=== PATIENT | female | born 1960 | race Caucasian/White ===

== ENCOUNTER 2021-04-08 07:44 | Inpatient (IN) ==
[2021-04-08] MEDS ORDERED: Lidocaine -MPF 4% 5 ML AMPUL ONE (08:16)
[2021-04-08] MEDS ORDERED: Ondansetron 4 MG/2 ML VIAL ONE (08:16)
[2021-04-08] MEDS ORDERED: *HR* Rocuronium Bromide 50 MG/5 ML VIAL ONE (08:16)
[2021-04-08] MEDS ORDERED: Lidocaine -MPF 2% 5 ML VIAL ONE (08:16)
[2021-04-08] MEDS ORDERED: *HR* FentaNYL (PF) 100 MCG/2 ML VIAL ONE (08:17)
[2021-04-08] MEDS ORDERED: Pregabalin 75 MG CAPSULE PO ONE (08:17)
[2021-04-08] MEDS ORDERED: Famotidine 20 MG/2 ML VIAL IVP ONE (08:17)
[2021-04-08] MEDS ORDERED: *HR* Propofol 200 MG/20 ML VIAL IVP ONE (08:17)
[2021-04-08] MEDS ORDERED: Acetaminophen IV 1,000 MG/100 ML BAG IVPB ONE (08:17)
[2021-04-08] MEDS ORDERED: *HR* HYDROmorphone (PF) 1 MG/ML SYRINGE IVP PRN (08:17)
[2021-04-08] MEDS ORDERED: *HR* HYDROmorphone 2 MG TABLET PO PRN (08:17)
[2021-04-08] MEDS ORDERED: *HR* OxyCODONE Immed Rel 5 MG TABLET PO PRN ×2 (08:17→13:07)
[2021-04-08] MEDS ORDERED: *HR* Labetalol 20 MG/4 ML SYRINGE IVP PRN (08:17)
[2021-04-08] MEDS ORDERED: Ketorolac 30 MG/ML VIAL ONE (08:40)
[2021-04-08] MEDS ORDERED: Bupivacaine/EPI 1:200k 0.25% 50 ML VIAL ONE (08:56)
[2021-04-08] MEDS ORDERED: cefTRIAXone 1,000 MG in 0.9 % Sodium Chloride Mini Bag 100 ML IVPB ONE (08:57)
[2021-04-08] MEDS ORDERED: 0.9 % Sodium Chloride 500 ML IVC SCH (09:00)
[2021-04-08] MEDS ORDERED: *HR* Phenylephrine 10 MG/ML VIAL ONE (10:33)
[2021-04-08] MEDS ORDERED: *HR* HYDROMORPHONE 2 MG/ML VIAL ONE (10:56)
[2021-04-08] MEDS ORDERED: Sugammadex Sodium 200 MG/2 ML VIAL IV ONE (11:23)
[2021-04-08] MEDS ORDERED: Naloxone 0.4 MG/ML INJ IVP PRN (13:07)
[2021-04-08] MEDS ORDERED: *HR* Belladonna Alkaloids/Opium 30 MG RECTAL SUPPOSITORY RC PRN (13:07)
[2021-04-08] MEDS ORDERED: Ondansetron 4 MG/2 ML VIAL IVP PRN (13:07)
[2021-04-08] MEDS: 0.9 % Sodium Chloride 1,000 ML IVC SCH (16:12)
[2021-04-08] MEDS: CeFAZolin 2 GM/120 ML BAG IVPB SCH (18:09)
[2021-04-08] MEDS: *HR* HYDROcodone/Acet 5/325 mg TABLET PO PRN (18:19)
[2021-04-08] MEDS: Acetaminophen IV 1,000 MG/100 ML BAG IVPB SCH (18:19)
[2021-04-09] MEDS: *HR* HYDROcodone/Acet 5/325 mg TABLET PO PRN ×2 (01:00→07:49)
[2021-04-09] MEDS: CeFAZolin 2 GM/120 ML BAG IVPB SCH (03:04)
[2021-04-09] MEDS: 0.9 % Sodium Chloride 1,000 ML IVC SCH (03:06)
[2021-04-09 03:07] LABS: Hemoglobin 13.2 g/dL (11.5-15.4); Immature Granulocytes % 0.6 % (0-4); Lymphocytes # 0.9 K/mcL (0.6-4.6); Lymphocytes % 6.5 %; Mean Corpuscular HGB Conc 32.2 g/dL (31.6-35.5); Mean Platelet Volume 10.6 fL (9.4-12.4); Monocytes # 0.6 K/mcL (0.0-1.3); Monocytes % 4.4 %; Neutrophils # 11.9 K/mcL (1.6-8.9); Platelet Count 255 K/mcL (140-400); Red Blood Count 4.88 M/mcL (3.82-4.97); Red Cell Distribution Width 13.6 % (11.5-14.5); Segmented Neutrophils % 88.5 %; White Blood Count 13.5 K/mcL (4.3-11.1)
[2021-04-09] MEDS: Acetaminophen IV 1,000 MG/100 ML BAG IVPB SCH (03:08)
[2021-04-09 03:21] LABS: BUN/Creatinine Ratio 20 (6-26); Blood Urea Nitrogen 19 mg/dL (8-23); Calcium 8.9 mg/dL (8.6-10.3); Carbon Dioxide 22 mEq/L (23-29); Chloride 105 mEq/L (98-107); Glucose 126 mg/dL (70-105); Osmolality,Calculated 284 (280-300); Potassium 4.5 mEq/L (3.5-5.1); Sodium 135 mEq/L (136-145); eGFR For African Americans > 60 (> 60); eGFR For Non-African Americans 59 (> 60)
[2021-04-09 03:31] VITALS: BP 126/69; PULSE 67; TEMP 98.2; O2SAT 94
== END 2021-04-09 11:49 | disposition home or self-care (01) | DRG 661 ==
LOC: SAMDAY 07:44 → 3ANU 12:55
PROVIDERS: ADMIT Urology; ATTEND Urology